=== PATIENT | female | born 1955 | race Caucasian/White ===

== ENCOUNTER 2018-05-31 09:10 | Day surgery (SDC) | payer BC ==
--- NOTE | 2018-05-31 06:24 | History and Physical - [place] ---
CHIEF COMPLAINT/HISTORY OF CHIEF COMPLAINT: This patient with a history of intractable lumbar radiculopathy due to the failure of therapy had a spinal cord stimulator trial conducted on 02/16/18 with 75+% pain control. Due to the failure of all therapy and the success of the trial the patient presents today for implantation of a permanent system. PAST MEDICAL HISTORY: Hypertensin and asthmatic bronchitis. PAST SURGICAL HISTORY: Appendectomy, carpal tunnel release, and tubal ligation. MEDICATIONS ON ADMISSION: List to be provided. ALLERGIES: SULFA. FAMILY/PSYCHOSOCIAL HISTORY: Social history - Caffeine. Family history - Thyroid disease, asthma, diabetes, coronary artery disease, and hypertension. SYSTEMS REVIEW: The patient seems appropriate in no acute distress. The remainder of the systems review is positive for dentures, respiratory problems, blood pressure issues, reflux, and degenerative arthritis. PHYSICAL EXAMINATION: Height is 5'3", weight is 280. No vital signs. HEENT: Within normal limits. LUNGS: Clear. HEART: Rapid and irregular. ABDOMEN: Obese. MUSCULOSKELETAL: Examination of the musculoskeletal system shows diffuse tenderness throughout the lumbar spine. Range of motion does produce pain moving into both legs, somewhat more right than left. Motor and sensory field function is difficult to assess. There appears to be sensory abnormalities, right greater than left across multiple dermatomes. There is weakness into both legs. Ambulation - Assistive device utilized. NEUROLOGIC: Cranial nerves are intact. IMPRESSION: LUMBAR RADICULOPATHY, ICD-10 CODE M54.16 AND M54.17. PLAN: The patient is here after failure of all conservative therapies for implantation of a permanent spinal cord stimulator. The procedure will be considered outpatient although an overnight stay will be evaluated. JOB NUMBER: [id number] [facility]
[~2018-05-31 09:10] MED LIST: ACETAMINOPHEN 1,000 MG/100 ML BTL IV ONE; CEFAZOLIN 2 Gram 2 GM/50 ML BAG IVPB ONE; FAMOTIDINE 20MG TABLET PO ONE; MECLIZINE 25 MG TABLET PO ONE; METOCLOPRAMIDE 10 MG TABLET PO ONE
[2018-05-31] MEDS ORDERED: LIDOCAINE 1% W/EPI 1:200,000 MPF 30ML SQ ONE (09:11)
[2018-05-31] MEDS ORDERED: PROPOFOL 10 MG/ML VIAL IV ONE (09:11)
[2018-05-31] MEDS ORDERED: KETAMINE HCL 100MG/1ML VIAL INJ ONE (09:11)
[2018-05-31] MEDS ORDERED: BUPIVACAINE 0.5% W/EPI MPF 30 ML VIAL IVP ONE (09:11)
[2018-05-31] MEDS ORDERED: LIDOCAINE 2% MDV (20MG/ML) 20ML VIAL IV ONE (09:11)
[2018-05-31] MEDS ORDERED: FENTANYL PF 100MCG/2ML VIAL IV ONE (09:11)
[2018-05-31] MEDS ORDERED: MIDAZOLAM HCL 2MG/2ML VIAL IV ONE (09:11)
[2018-05-31 09:54] LABS: PROTHROMBIN TIME (PATIENT) 10.3 SECONDS (9.5-12.1)
--- NOTE | 2018-05-31 13:20 | Operative Note ---
DATE OF SURGERY: 05/31/2018 PREOPERATIVE DIAGNOSIS: LUMBAR RADICULOPATHY, ICD-10 CODE = M54.16 AND M54.17. SURGERY: 1. FLUOROSCOPIC-GUIDED EPIDURAL ACCESS LEFT T12-L1. PLACEMENT OF SPINAL CORD STIMULATOR LEAD 1, A [employer] 16 WITH 6 ELECTRODES POSITIONED LEFT AT T7. 2. FLUOROSCOPIC-GUIDED EPIDURAL ACCESS LEFT L1-2. PLACEMENT OF SPINAL CORD STIMULATOR LEAD 2, A [employer] 16 WITH 6 ELECTRODES POSITIONED RIGHT AT T7. 3. COMPLEX PROGRAMMING OF LEAD 1 OVER 20 MINUTES FOLLOWED BY COMPLEX PROGRAMMING OF LEAD 2 OVER 20 MINUTES. 4. REMOVAL OF LEAD 1 AND LEAD 2, FAILED IMPLANT. SURGEON: PEPE SEBASTIAN D.O. ANESTHESIA: LOCAL SEDATION. CARLOS THACKER CRNA. INDICATIONS: This patient presents with a history of an intractable lumbar radiculopathy. Due to the failure of therapies, a spinal cord stimulator trial was conducted in the office with 75+% pain control. Due to the failure of therapy and the success of the trial, she presents today for implantation of a permanent system. SURGERY: Intravenous line, vital sign monitoring, IV sedation. Prepped and draped sterile technique, patient positioned prone. Sterile prep, sterile technique. The epidural interspace left of the midline at T12-L1 and at L1-2 were marked and infiltrated. Using curved access Epimed needles with loss-of- resistance, the space was accessed. At 12-1, spinal cord stimulator lead 1, a [employer]ion 16 with 6 electrodes was positioned slightly left of midline at T7. With the epidural access at L1-S2, spinal cord stimulator lead 2 , also a [employer]ion 16 with 6 electrodes was positioned right of midline at T7. Complex programming of lead 1 over 20 minutes followed by complex programming of lead 2 over 20 minutes resulting in mixed pattern of stimulation. Although the patient's pain pattern was right low back, hip, and leg, stimulation with the above locations resulted in bilateral stimulation. The leads were then retracted down ultimately to T9 with complex programming again performed, 20 left and 20 minutes right with continued mixed pattern of stimulation and periodically intercostal stimulation. Lateral imaging was performed confirming posterior placement. The leads were then re-navigated, and repositioned, moving the leads somewhat more left than right. Complex programming 20 minutes. Mixed patterns of stimulation again achieved. The leads were then navigated somewhat more right than left. Complex patterns of stimulation resulted when programming was performed over another 20 minutes. Ultimately, it was decided that we were unsuccessful in getting stimulation solely to the right without getting stimulation patterns to the left. The patient was informed and it was suggested that with the current electrode positions at T9 and using sub-threshold settings, we may be able to achieve adequate stimulation patterns in the primary region of her pain. The patient indicating that the patterns of stimulation, which were being felt to the left, were not acceptable. At that point, we mutually decided to end the implant and consider this to be a failed trial. The leads were removed. Steri-Strips and sterile dressing applied. After the leads were removed, there were no incisions made. She was transported to the Recovery Room stable. DISCHARGE INSTRUCTIONS: She will complete the antibiotic as prescribed, Levaquin 500 mg once a day for 14 days. She will be seen in the office in 12 to 14 days. All other instructions provided, numbers to contact with problems have been given. cc: Dr. Menjivar JOB NUMBER: [id number] MTDD
== END 2018-05-31 12:55 | disposition home or self-care (01) ==
LOC: SUR 09:10
PROVIDERS: ATTEND Pain Medicine Interventional Pain Medicine
DX: M54.16 Radiculopathy, lumbar region (principal); M54.17 Radiculopathy, lumbosacral region; T85.192D Other mechanical complication of implanted electronic neurostimulator of spinal cord electrode (lead), subsequent encounter; I10 Essential (primary) hypertension; K21.9 Gastro-esophageal reflux disease without esophagitis; J45.909 Unspecified asthma, uncomplicated; E66.01 Morbid (severe) obesity due to excess calories
CPT/HCPCS: 85002; 85610; 85730; 95972; C1883; J3490